=== PATIENT | female | born 1995 | race Caucasian/White ===

== ENCOUNTER 2025-02-18 22:48 | Emergency (ER) | payer MEDICAID ==
[~2025-02-18] VITALS: Ht 170.2 cm; Wt 129.9 kg
[2025-02-18 22:51] VITALS: BP 150/92; PULSE 108; RESP 16; TEMP 36.8; O2SAT 99
== END 2025-02-19 03:58 | disposition left against medical advice (07) ==
LOC: ER 22:48
DX: R07.89 Other chest pain (principal); M79.605 Pain in left leg; M79.604 Pain in right leg
CPT/HCPCS: 71045; 93005; 99281; 99283